=== PATIENT | born 1980 | race Caucasian/White ===

== ENCOUNTER → 2024-09-11 11:29 | Outpatient (BNVA) | payer OTHER, SELFPAY | PROVIDERS: Referring Provider Nurse Practitioner; Visit Provider Psychiatry & Neurology Neurology | DX: G56.03 Carpal tunnel syndrome, bilateral upper limbs (principal); G56.23 Lesion of ulnar nerve, bilateral upper limbs; R20.0 Anesthesia of skin; R20.2 Paresthesia of skin | CPT/HCPCS: 95912 ==

== ENCOUNTER 2025-07-03 09:42 | Outpatient (CLI) | payer OTHER, SELFPAY ==
--- NOTE | 2025-07-03 09:54 | XR_ITS ---
WS: [id number] Exam: XR sinus [place] view [id number] Date/Time of Exam: 07/03/2025 10:22 AM Reason For Exam: CHRONIC SINUSITIS DLP: The frontal, ethmoid, maxillary and sphenoid sinuses are all clear. No masses or fluid levels. No fracture or bone destruction. Leftward mild deviation of the nasal septum. XR/XR sinus [place] view [id number] IMPRESSION: 1. Normal facial sinuses.
== END 2025-07-03 09:43 | disposition home or self-care (01) ==
LOC: RAD 09:46
PROVIDERS: Visit Provider Nurse Practitioner Family
DX: J32.9 Chronic sinusitis, unspecified (principal); J34.2 Deviated nasal septum
CPT/HCPCS: 70210